=== PATIENT | female | born 1985 | race Caucasian/White ===

== ENCOUNTER 2016-10-28 23:40 | Emergency (ER) | payer SELFPAY ==
[~2016-10-28] VITALS: Ht 165.1 cm; Wt 61.2 kg
[2016-10-29 00:11] VITALS: BP 137/86
[2016-10-29] MEDS ORDERED: IV NORMAL SALINE 1000ML BAG 1,000 ML IV ONE (00:15)
[2016-10-29 00:28] LABS: BARBITURATES NEG (NEG); BENZODIAZEPINES NEG (NEG); CANNABINOIDS POS (NEG); COCAINE NEG (NEG); METHADONE NEG (NEG); OPIATES NEG (NEG); PHENCYCLIDINE NEG (NEG)
[2016-10-29 00:43] LABS: BASO # 0.1 x10^3/uL (0.0-0.2); BASO % 1 % (0-3); EOS % 1 % (0-3); HEMATOCRIT 46.1 % (36.0-47.0); HEMOGLOBIN 15.4 g/dL (12.0-15.5); LYMPH # 2.6 x10^3/uL (1.0-4.8); LYMPH % 28 % (24-48); MEAN CORPUSCULAR HEMOGLOBIN 29 pg (25-35); MEAN CORPUSCULAR HGB CONC 33 g/dL (31-37); MEAN CORPUSCULAR VOLUME 87 fL (79-100); MONO % 8 % (0-9); NEUT % 63 % (31-73); PLATELET COUNT 263 x10^3/uL (140-400); RED BLOOD COUNT 5.29 x10^6/uL (3.50-5.40); RED CELL DISTRIBUTION WIDTH 13.2 % (11.5-14.5); WHITE BLOOD COUNT 9.2 x10^3/uL (4.0-11.0)
[2016-10-29 00:51] LABS: CALCIUM 9.3 mg/dL (8.5-10.1); CREATININE 0.7 mg/dL (0.6-1.0); GFR 97.6; POTASSIUM 3.1 mmol/L (3.5-5.1)
[2016-10-29 00:58] LABS: ALBUMIN 4.4 g/dL (3.4-5.0); TOTAL BILIRUBIN 0.3 mg/dL (0.2-1.0); TOTAL PROTEIN 8.9 g/dL (6.4-8.2)
--- NOTE | 2016-10-29 04:32 | PHYS DOC ---
Past Medical History Past Medical History: Anxiety, Depression Past Surgical History: Cholecystectomy, Additional Past Surgical Histo: BACK, BREAST AUGMENTATION Alcohol Use: Occasionally Drug Use: Marijuana Adult General Chief Complaint Chief Complaint: OVERDOSE HPI HPI 31-year-old female with a history of depression, states she is compliant with her Wellbutrin and Zoloft, now presents to the emergency department after an alleged overdose of Tylenol PM. Patient states she think she took about 20-30 Tylenol PM at 10:30 PM. She states this was an intentional overdose as she was trying to hurt herself because she was angry at her boyfriend. She denies other coingestants. She denies alcohol or drug abuse. Arrival patient has a mild tachycardia at 110. He states after the ingestion she did vomit and supple fragments in the vomitus but she is also not sure exactly how much she vomited up. Patient is very clear that she did not overdose on Tylenol prior to 10:30 PM and that this was an acute overdose by her description. Other than feeling depressed she is currently asymptomatic. She states she is not having ideas of hurting herself right now nor has she had any thoughts of hurting anyone else. Other than the alleged overdose patient has not injured herself in any way. Review of Systems Review of Systems Constitutional: Denies fever or chills [] Eyes: Denies change in visual acuity, redness, or eye pain [] HENT: Denies nasal congestion or sore throat [] Respiratory: Denies cough or shortness of breath [] Cardiovascular: No additional information not addressed in HPI [] GI: Denies abdominal pain, nausea, vomiting, bloody stools or diarrhea [] : Denies dysuria or hematuria [] Musculoskeletal: Denies back pain or joint pain [] Integument: Denies rash or skin lesions [] Neurologic: Denies headache, focal weakness or sensory changes [] Endocrine: Denies polyuria or polydipsia [] Current Medications Current Medications Current Medications Medications (Trade) Dose Ordered Sig/Jonah Start Time Stop Time Status Last Admin Dose Admin Sodium Chloride 1,000 ml @ 125 mls/hr 1X ONCE 10/29/16 00:15 10/29/16 08:14 10/29/16 00:27 125 MLS/HR Allergies Allergies Allergies Coded Allergies Type Severity Reaction Last Updated Verified Unable to Assess 10/29/16 No Physical Exam Physical Exam Well-appearing 31-year-old female no acute distress. She does have a depressed mood and flat affect but she is alert and appropriate cooperative and calm on exam. Mild tachycardia at 110. Clear lungs regular rate and rhythm benign abdomen nonfocal neurologic exam and remainder of exam is benign Constitutional: Well developed, well nourished, no acute distress, non-toxic appearance. [] HENT: Normocephalic, atraumatic, bilateral external ears normal, oropharynx moist, no oral exudates, nose normal. [] Eyes: PERRLA, EOMI, conjunctiva normal, no discharge. [] Neck: Normal range of motion, no tenderness, supple, no stridor. [] Cardiovascular:Heart rate regular rhythm, no murmur [] Lungs & Thorax: Bilateral breath sounds clear to auscultation [] Abdomen: Bowel sounds normal, soft, no tenderness, no masses, no pulsatile masses. [] Skin: Warm, dry, no erythema, no rash. [] Back: No tenderness, no CVA tenderness. [] Extremities: No tenderness, no cyanosis, no clubbing, ROM intact, no edema. [] Neurologic: Alert and oriented X 3, normal motor function, normal sensory function, no focal deficits noted. [] Psychologic: Depressed mood judgement normal, Current Patient Data Vital Signs Vital Signs Date Time Temp Pulse Resp B/P (MAP) Pulse Ox O2 Delivery O2 Flow Rate FiO2 10/29/16 00:11 98.0 110 18 137/86 (103) 99 Room Air 98.0 Lab Values Laboratory Tests Test 10/28/16 23:04 10/29/16 00:01 10/29/16 00:30 POC Urine HCG, Qualitative Hcg negative (Negative) Urine Opiates Screen Neg (NEG) Urine Methadone Screen Neg (NEG) Urine Barbiturates Neg (NEG) Urine Phencyclidine Screen Neg (NEG) Urine Amphetamine/Methamphetamine Neg (NEG) Urine Benzodiazepines Screen Neg (NEG) Urine Cocaine Screen Neg (NEG) Urine Cannabinoids Screen Pos (NEG) Urine Ethyl Alcohol Pos (NEG) White Blood Count 9.2 x10^3/uL (4.0-11.0) Red Blood Count 5.29 x10^6/uL (3.50-5.40) Hemoglobin 15.4 g/dL (12.0-15.5) Hematocrit 46.1 % (36.0-47.0) Mean Corpuscular Volume 87 fL (79-100) Mean Corpuscular Hemoglobin 29 pg (25-35) Mean Corpuscular Hemoglobin Concent 33 g/dL (31-37) Red Cell Distribution Width 13.2 % (11.5-14.5) Platelet Count 263 x10^3/uL (140-400) Neutrophils (%) (Auto) 63 % (31-73) Lymphocytes (%) (Auto) 28 % (24-48) Monocytes (%) (Auto) 8 % (0-9) Eosinophils (%) (Auto) 1 % (0-3) Basophils (%) (Auto) 1 % (0-3) Neutrophils # (Auto) 5.8 x10^3uL (1.8-7.7) Lymphocytes # (Auto) 2.6 x10^3/uL (1.0-4.8) Monocytes # (Auto) 0.7 x10^3/uL (0.0-1.1) Eosinophils # (Auto) 0.1 x10^3/uL (0.0-0.7) Basophils # (Auto) 0.1 x10^3/uL (0.0-0.2) Sodium Level 141 mmol/L (136-145) Potassium Level 3.1 mmol/L (3.5-5.1) L Chloride Level 104 mmol/L (98-107) Carbon Dioxide Level 27 mmol/L (21-32) Anion Gap 10 (6-14) Blood Urea Nitrogen 8 mg/dL (7-20) Creatinine 0.7 mg/dL (0.6-1.0) Estimated GFR (Cockcroft-Gault) 97.6 BUN/Creatinine Ratio 11 (6-20) Glucose Level 83 mg/dL (70-99) Calcium Level 9.3 mg/dL (8.5-10.1) Total Bilirubin 0.3 mg/dL (0.2-1.0) Aspartate Amino Transferase (AST) 26 U/L (15-37) Alanine Aminotransferase (ALT) 30 U/L (14-59) Alkaline Phosphatase 83 U/L (46-116) Total Protein 8.9 g/dL (6.4-8.2) H Albumin 4.4 g/dL (3.4-5.0) Albumin/Globulin Ratio 1.0 (1.0-1.7) Salicylates Level < 2.8 mg/dL (2.8-20.0) L Salicylate Last Dose Date Salicylate Last Dose Time Acetaminophen Level 123.4 mcg/ml (10-30) H Acetaminophen Last Dose Date Acetaminophen Last Dose Time Laboratory Tests 10/29/16 00:30 Laboratory Tests 10/29/16 00:30 EKG EKG Sinus tachycardia at 110 normal axis no STEMI incomplete right bundle-branch block interpreted by me. Radiology/Procedures Radiology/Procedures Chest x-ray no acute disease normal study interpreted by me [] Course & Med Decision Making Course & Med Decision Making Pertinent Labs and Imaging studies reviewed. (See chart for details) Patient depressed status post alleged overdose of Tylenol PM. The patient's account of the ingestion at 10:30 is supported by her mild tachycardia on arrival. EKG is unremarkable. 4 hour Tylenol level will be drawn at 2:30 AM. Random Tylenol level drawn at 12:30 AM with result of 123 confirmatory of patient's stated ingestion however extent still unknown. Discussed with patient potentially life-threatening nature of a Tylenol overdose and that her therapy will be decided based on her 4 hour level at 2:30 AM. Patient was evaluated in the emergency department by psychiatric services. Patient was very clear to them that she feels like she is no longer a danger to herself and was just acting out with this overdose. At approximately 1:17 AM patient asked the nurse to unhook her from her iv fluids so she could use the bathroom. Patient's boyfriend was also in the room. Shortly thereafter became apparent that the patient and her boyfriend had eloped from the emergency department. Patient was alert and communicative. She was denying suicidality to her psychiatric services. She was definitely aware of the life-threatening nature of her ingestion and critical importance of for workup and treatment as needed. Despite this inside the patient eloped with her boyfriend with her IV in place. Police were immediately called patient was unable to be found around or outside the hospital. Police did a home visit and patient refused to come to the hospital. [employer] compliant message was left for the patient at her listed number to call us at the hospital regarding her results and importance of returning to the emergency department for continued treatment. Critical care 35 minutes Dragon Disclaimer Dragon Disclaimer This electronic medical record was generated, in whole or in part, using a voice recognition dictation system. Departure Departure Impression: Primary Impression: Intentional acetaminophen overdose Additional Impressions: Depression Anticholinergic syndrome Tachycardia Disposition: 07 AGAINST MEDICAL ADVICE Condition: GRAVE Referrals: NO PCP (PCP) Problem Qualifiers KATHERYN DINERO MD Oct 29, 2016 04:32
--- NOTE | 2016-10-29 08:14 | RAD ---
Exam performed: One view chest. Indication: OVER DOSE Date of Service: 10/29/2016 2:09 AM Comparison: None available. Single AP upright portable view chest findings: Cardiomediastinal silhouette is within limits of normal. No acute infiltrates, effusion or pneumothorax is detected. The bony structures are normal. Impression: No acute cardiopulmonary process is detected.
--- NOTE | 2016-10-29 08:17 | EKG ---
[facility] [address] [place] [address] Test Date: 2016-10-29 Test Time: 00:00:27 Pat Name: VALERIE MCNAMARA Department: Room: Gender: F [employer] Storage Clerk: : 1985 Requested By: KATHERYN DINERO Order Number: [id number] Reading MD: Skip Marino Measurements Intervals [place] Rate: 110 P: 28 DC: 158 QRS: 52 QRSD: 98 T: 44 QT: 342 QTc: 468 Interpretive Statements SINUS TACHYCARDIA Electronically Signed On 10-29-2016 9:24:41 CDT by Skip Marino
== END 2016-10-29 02:20 | disposition left against medical advice (07) ==
LOC: ER 23:40
DX: T39.1X2A Poisoning by 4-Aminophenol derivatives, intentional self-harm, initial encounter (principal); T44.3X1A Poisoning by other parasympatholytics [anticholinergics and antimuscarinics] and spasmolytics, accidental (unintentional), initial encounter; R00.0 Tachycardia, unspecified; F32.9 Major depressive disorder, single episode, unspecified; F41.9 Anxiety disorder, unspecified; Y92.89 Other specified places as the place of occurrence of the external cause
CPT/HCPCS: 36415; 71010; 80053; 80307; 80329; 81025; 85025; 93005; 96360; 99291; J7030; G0479